=== PATIENT | male | born 2000 | race Caucasian/White ===

== ENCOUNTER 2023-12-08 15:02 | Emergency (ER) | payer OTHER, SELFPAY ==
--- NOTE | ~2023-12-08 | XR_ITS ---
EXAMINATION: XR ANKLE, LEFT CLINICAL INFORMATION: Rolled ankle. Pain COMPARISON: None available. TECHNIQUE: AP, lateral, and mortise views of the left ankle. FINDINGS: There is lateral malleolar soft tissue swelling. No visible acute fracture, dislocation or subluxation seen. The ankle mortise and subtalar joints are normal. There is no bony abnormality. XR/XR ankle LT 2V IMPRESSION: Mild lateral malleolar soft tissue swelling likely ligamentous injury. No visible acute fracture or dislocation seen.
[2023-12-08 15:56] VITALS: BP 129/78; PULSE 91; RESP 16; TEMP 36.6; O2SAT 99; BMI 26.4
--- NOTE | 2023-12-08 15:56 | ED_ITS ---
HPI - Extremity Injury (Lower) General Chief Complaint: Extremity Injury, Lower Stated Complaint: left ankle pain work inj Time Seen by Provider: 12/08/23 16:11 Source: patient Mode of arrival: ambulatory Limitations: no limitations History of Present Illness HPI Narrative: This is a 23-year-old male presenting with left ankle pain, swelling, patient reports he was walking, he rolled his ankle and then fell, he did not hit his head or lose consciousness. He grabbed himself when he fell. His main complaint is ankle pain worse with movement better at rest. Denies numbness, tingling, fevers, chills, chest pain, shortness of breath, headache, vision changes, dizziness and weakness. Reports it is very painful to ambulate. No previous issues with ankle. Related Data Previous Rx's Medication Instructions Recorded naproxen 500 mg tablet 500 mg PO BID #14 tabs 12/08/23 Allergies Allergy/AdvReac Type Severity Reaction Status Date / Time SEAFOOD Allergy Intermediate ITCHING Uncoded 07/17/20 18:52 Review of Systems Review of Systems: Yes all other systems are reviewed and are negative [facility] Past Medical History Attestation statement: The following information was validated with the patient. Source: old records reviewed and nursing notes reviewed Social History Social History Advance Directives: No Advance Directives Information Provided: No Physical Exam Vital Signs: Vital Signs: Last Vital Signs Temp 98 F 12/08/23 15:56 Pulse 91 12/08/23 15:56 Resp 16 12/08/23 15:56 BP 129/78 12/08/23 15:56 Pulse Ox 99 12/08/23 15:56 O2 Del Method Room Air 12/08/23 15:56 BMI result Body Mass Index 26.4 Vital signs stable Appearance: Alert.? Oriented X3.? No acute distress.? Head: Normocephalic, atraumatic, no step-offs or deformities Eyes: Pupils equal, round and reactive to light.? ENT: Pharynx normal.? Neck: Normal inspection.? Neck supple.? CVS: Normal heart rate and rhythm.? Pulses normal.? Respiratory: No respiratory distress.? Breath sounds normal.? Abdomen: Soft and nontender.? Skin: Skin warm and dry.? Normal skin color.? Normal skin turgor.? Extremities: No lower extremity edema.? No calf ttp. 5/5 strength to bilateral upper and lower extremities 2+ dorsalis pedis, anterior tibialis posterior tibialis pulses equal bilateral lower extremities. No footdrop. Normal sensation distally. Slightly uncomfortable range of motion to left ankle with some overlying swelling overlying the lateral malleolus. Step-offs or deformities. Neuro: Oriented X 3.? No motor deficit.? No sensory deficit. CN 2-12 intact Course Course Course Narrative: RME: Rolled ankle and fell at work around 1:40 pm. Took Ibuprofen for pain. Denies headstrike or LOC. Reevaluation(s) Reevaluation #1: X-ray showing mild lateral malleolar soft tissue swelling likely ligamentous injury. Aircast applied crutches given. Will give naproxen for pain control. Advised him to follow-up with PCP and Orthopedics. Educated patient on diagnosis and treatment plan, answered all question, patient verbalizes understanding. At this time patient will be discharged home, advised to return with new or worsening symptoms. Educated on worrisome signs and symptoms and when to return. At this time I feel comfortable discharge home. Time: 16:46 Medical Decision Making Medical Decision Making [facility] Narrative: 23-year-old male presents with left ankle pain status post rolling his ankle at work. Physical exam significant for 2+ dorsalis pedis, anterior tibialis posterior tibialis pulses equal bilateral lower extremities. No footdrop. Normal sensation distally. Slightly uncomfortable range of motion to left ankle with some overlying swelling overlying the lateral malleolus. Step-offs or deformities. History and physical exam concerning for sprain versus strain. Unlikely fracture dislocation. No signs of neurovascular compromise, threat to limb. No signs of traumatic injury to head, neck, chest, abdomen or pelvis. No head trauma no indication for head CT. No neurological deficits. Plan imaging. Will give him naproxen for pain. Will give Aircast and crutches. Differential Diagnosis Differential Diagnoses: The differential diagnosis associated with the presentation includes History and physical exam concerning for sprain versus strain. Unlikely fracture dislocation. No signs of neurovascular compromise, threat to limb. No signs of traumatic injury to head, neck, chest, abdomen or pelvis. Admission/Observation Consideration of admission/observation: Escalation of care including admission/observation considered Independent Interpretation I performed an independent interpretation of an: Plain X-Ray Radiology Impression Discussion of test interpretation with radiology: I have reviewed the radiologist's reading. Prescription Management I considered prescription management with: Pain Medication Critical Care Time Critical Care Time Critical Care Time: No Discharge Plan Discharge Clinical Impression: Ankle sprain and strain Patient Disposition: Home, Self-Care Instructions: Ankle Sprain (DC), Crutch Instructions (ED), Ankle Stirrup Splint (ED), R.I.C.E. Treatment (ED) Additional Instructions: Take your medications as prescribed. If you were prescribed antibiotics today, it is important that you take your medication to their entirety, do not skip any doses, do not finish them early. Follow-up with your primary care provider this week. Return to the emergency department with new or worsening symptoms. Such as fevers, chills, chest pain, shortness of breath, nausea, vomiting, dizziness, headache, vision changes, lethargy In case of emergency call 911 Naproxen has been sent to your pharmacy for pain. Please do not take this with ibuprofen or any other NSAIDs. Return with worsening pain, swelling, bruising, numbness or tingling. XR/XR ankle LT 2V IMPRESSION: Mild lateral malleolar soft tissue swelling likely ligamentous injury. No visible acute fracture or dislocation seen. Prescriptions: New naproxen 500 mg tablet 500 mg PO BID Qty: 14 0RF Referrals: [facility] [place] [facility] [Provider Group] - 1 week Physician,None [Primary Care Provider] - 2 days Stand Alone Forms: Work/School Release
[2023-12-08] MEDS: NaPROXEN 500 MG TABLET PO (17:46)
== END 2023-12-08 17:55 | disposition home or self-care (01) ==
PROVIDERS: Emergency Provider Emergency Medicine
DX: S93.402A Sprain of unspecified ligament of left ankle, initial encounter (principal); M25.572 Pain in left ankle and joints of left foot; X50.1XXA Overexertion from prolonged static or awkward postures, initial encounter; Y93.9 Activity, unspecified; Y92.9 Unspecified place or not applicable; Y99.0 Civilian activity done for income or pay
CPT/HCPCS: 73600; 99283; 99284